=== PATIENT | female | born 1995 | race Caucasian/White ===

== ENCOUNTER 2019-02-07 21:36 | Emergency (ER) | payer MEDICAID ==
[~2019-02-07] VITALS: Ht 162.6 cm; Wt 64.0 kg
[2019-02-08 00:20] VITALS: BP 118/77
== END 2019-02-08 02:03 | disposition home or self-care (01) ==
LOC: ER 21:36
DX: H92.03 Otalgia, bilateral (principal)
CPT/HCPCS: 99283